=== PATIENT | female | born 1955 | race Caucasian/White ===

== ENCOUNTER 2020-02-06 20:42 | Emergency (ER) | payer MEDICARE, BC ==
[~2020-02-06] VITALS: Ht 167.6 cm; Wt 46.7 kg
[2020-02-06] MEDS ORDERED: SILVER SULFADIAZINE 1% CREAM 50 GM TP ONE (21:15)
[2020-02-06] MEDS ORDERED: NEOMY/BACITRA/POLYMYXIN B OINT UD PACKET TP ONE ×2 (21:15)
--- NOTE | 2020-02-06 21:24 | NUR ---
Patient discharged to home in stable condition. Written and verbal after care instructions given. Patient verbalizes understanding of instructions. Stressed follow up or return to ER for worsening s/s.
[2020-02-06 21:32] VITALS: BP 130/85
== END 2020-02-06 21:32 | disposition home or self-care (01) ==
LOC: ER 20:46
DX: T23.252A Burn of second degree of left palm, initial encounter (principal); T31.0 Burns involving less than 10% of body surface; X18.XXXA Contact with other hot metals, initial encounter; Y93.G2 Activity, grilling and smoking food; Y92.89 Other specified places as the place of occurrence of the external cause
CPT/HCPCS: A4663